=== PATIENT | male | born 1930 | race Caucasian/White ===

== ENCOUNTER 2017-03-23 18:52 | Inpatient (IN) | payer MEDICARE ==
--- NOTE | 2017-03-23 19:20 | RAD ---
PORTABLE AP CHEST X-RAY 03/23/17 HISTORY: Preoperative evaluation. COMPARISON: None available. FINDINGS: The cardiac silhouette and pulmonary vasculature are within normal limits. There are scattered increa sed interstitial densities bilaterally probably related to mild chronic lung changes. There is no foc al consolidation or pleural fluid seen. Degenerative changes are noted in the spine with mild osteope corey and right acromioclavicular joint osteoarthritis. Vascular calcifications seen in the thoracic ao rta. IMPRESSION: Mild chronic lung changes without evidence of an acute cardiopulmonary process. POS: [facility]
[2017-03-23 19:22] LABS: Mean Corpuscular HGB CONC 31.1 g/dL (32.0-36.0); Mean Corpuscular Hemoglobin 27.9 pg (27.0-31.0); Mean Corpuscular Volume 89.6 fl (80.0-94.0); Mean Platelet Volume 11.1 fL (7.4-10.4); Platelet Count 129 thou/uL (130-400); RBC Distribution Width 16.5 % (11.5-14.5); Red Blood Cell (RBC) Count 2.51 mill/uL (4.70-6.10); White Blood Cell (WBC) Count 18.6 thou/uL (4.8-10.8)
[2017-03-23 19:45] LABS: ALT (SGPT) 11 U/L (8-55); AST (SGOT) 17 U/L (5-34); Albumin 3.5 g/dL (3.4-4.8); Alkaline Phosphatase 39 U/L (40-150); Anion Gap 16 mmol/L (10-20); BUN (Urea Nitrogen) 38 mg/dL (8.4-25.7); Bilirubin, Total 0.4 mg/dL (0.2-1.2); Calc. Creatinine Clearance 0 mL/min (70-130); Calcium 10.2 mg/dL (7.8-10.44); Carbon Dioxide 30 mmol/L (23-31); Chloride 104 mmol/L (98-107); Estimated GFR-MDRD 28; Globulin 2.5 g/dL (2.4-3.5); Glucose 166 mg/dL (83-110); Potassium 4.9 mmol/L (3.5-5.1); Sodium 145 mmol/L (136-145)
[2017-03-23 19:46] LABS: CKMB 2.5 ng/mL (0-6.6)
[2017-03-23 19:47] LABS: Anisocytosis SLIGHT = 6-15 cells (100X) (0-5/hpf); Band 2 % (5-11); Hypochromia SLIGHT = 6-15 cells (100X) (0-5/hpf); Large Platelets SLIGHT; Lymphocytes 3 % (21-51); MDiff Complete? YES; Monocytes 3 % (0-10); Neutrophil 92 % (42-75); Ovalocytes SLIGHT = 2-5 cells (100X) (0-1/hpf); PLT Morphology Comment Appears Decreased
[2017-03-23 19:59] LABS: Bilirubin Small (Negative); Blood, Urine Moderate (Negative); Clarity CLOUDY (Clear); Glucose, Urine (Dipstick) 100 mg/dL (Negative); Leukocyte Negative (Negative); Nitrite Negative (Negative); Protein, Urine (Dipstick) 100 mg/dL (Neg-Trace)
[2017-03-23 20:03] LABS: RBC/HPF 0-3 HPF (0-3); Squamous Epithelial 21-50 HPF (0-3); WBC/HPF 21-50 HPF (0-3); Yeast-AUWi Flag 13.2 (0-25.0)
[2017-03-23 20:06] LABS: Pathc Cast-AUWi Flag 7.04 (0-2.49)
[2017-03-23 20:22] LABS: Bacteria/HPF 3+ HPF (None Seen); Hyaline Casts/LPF 0-3 HYALINE CAST LPF (0-3 Hyaline); Manual Microscopic Reviewed? No Path Casts Seen; Renal Epithelial None Seen HPF (0-3); Transitional Epithelial NONE SEEN HPF (0-3)
--- NOTE | 2017-03-23 21:16 | RAD ---
TWO VIEWS LEFT HIP 03/23/17 HISTORY: Patient fell last night with a confirmed intertrochanteric left hip fracture. FINDINGS: There is an intertrochanteric left hip fracture. The distal fracture fragment is slightly displaced a nteriorly. In addition, fracture is probably mildly comminuted with fracture lucency extending supero lateral aspect of the femoral head/neck junction. There is no evidence of a dislocation. Postsurgical changes of the lower lumbar spine as well as postsurgical changes of the lower pelvis are noted. Vas cular calcifications are seen in the iliac and femoral arteries. IMPRESSION: Mildly comminuted intertrochanteric left hip fracture. The fracture appears to extend to the superola teral aspect of the left femoral head\neck junction. POS: [facility]
--- NOTE | 2017-03-23 21:21 | RAD ---
AP PELVIS RADIOGRAPH 03/23/17 HISTORY: Patient fell last night with confirmed intertrochanteric left hip fracture. COMPARISON: Views left hip also obtained on this date. FINDINGS: Frontal view of the left hip, there is an intertrochanteric left hip fracture. There is right hip ost eoarthritis with narrowing of the right hip joint space with subchondral sclerosis and subchondral cy stic changes. Postsurgical changes lumbar spine are noted related to posterior fusion and laminectomy defect at the level of the L4 vertebral body. Surgical clips overlie the pelvis. Vascular calcificat ions seen in the iliac and femoral arteries. IMPRESSION: 1. Intertrochanteric left hip fracture. 2. Right hip osteoarthritis. POS: [facility]
[2017-03-23] MEDS ORDERED: Hydrocortisone Sod Succ/PF 100 mg/2 ml Vial IVP SCH ×2 (21:30)
--- NOTE | 2017-03-23 21:32 | CT ---
NONCONTRAST CT HEAD 03/23/17 HISTORY: Injury after fall. Patient also has left hip fracture. COMPARISON: Not available. FINDINGS: There is decreased attenuation seen in the periventricular white matter likely reflective of mild chr onic small vessel ischemic changes. There is no evidence of an acute cortical infarction, hemorrhage, mass effect, or midline shift. There is cerebral volume loss. The ventricular system is normal in si ze, shape and position for the degree of sulcal atrophy. No calvarial fracture is seen. The visualize d paranasal sinuses and mastoid air cells are clear. Dense vascular calcifications are seen at the ca rotid siphons involving the distal vertebral arteries. IMPRESSION: 1. No acute intracranial abnormality is demonstrated. 2. Chronic small vessel ischemic changes and cerebral volume loss. POS: [facility]
[2017-03-23 21:46] LABS: INR-International Normal Ratio 1.3; Prothrombin Time 16.3 SEC (12.0-14.7)
[2017-03-23] MEDS ORDERED: traMADol HCl 50 MG TAB PO PRN (21:55)
[2017-03-23] MEDS ORDERED: Morphine 4 MG/ML Carpuject SLOW IVP PRN (21:56)
[2017-03-23] MEDS ORDERED: Dextrose 5% in Water 1,000 ML IV PRN (21:56)
[2017-03-23] MEDS ORDERED: Ondansetron HCl/PF 4 MG/2 ML Vial IVP PRN (21:56)
[2017-03-23] MEDS ORDERED: Dextrose 50% Abboject 50 ML SYRINGE SLOW IVP PRN (21:56)
[2017-03-23] MEDS ORDERED: Ondansetron ODT 4 MG TAB PO PRN (21:56)
--- NOTE | 2017-03-23 23:49 | HP ---
ATTENDING PHYSICIAN: Dr. Anthony Capone. TRAUMA ACTIVATION: Not applicable. HISTORY OF PRESENT ILLNESS: Travis Coles is an 86-year-old male who presented to [facility] from his residential status post fall from bed. alf staff reported that the patient has had in creasing confusion over the last couple of days. He was evaluated in our emergency room and found to have a left hip fracture and evidence of possible UTI on urinalysis. Orthopedic Surgery was notifie d and Trauma Service was asked to admit. In addition, patient was found to be anemic with a hemoglob in of 7, but no evidence of active bleeding. Lastly, the patient had an elevated creatinine and evid ence of acute versus chronic kidney injury. Upon my evaluation, the patient is intermittently confus ed. He cannot tell me why he came to the hospital. He denies any pain. Medical history and HPI obt ained from records review. ALLERGIES: None. CURRENT MEDICATIONS: Brandy 100 mg p.o. daily, Aricept 5 mg p.o. daily, aspirin 81 mg p.o. daily, B 12 injection every other week, Cymbalta 60 mg p.o. daily, Pepcid 20 mg p.o. at bedtime, Flomax 0.4 mg p.o. daily, ibuprofen 600 mg p.o. b.i.d., ipratropium-albuterol 4 times daily, iron 325 p.o. b.i.d., Synthroid 100 mcg p.o. a.m., Ativan 0.5 mg p.o. daily, meclizine 25 mg p.o. p.r.n., prednisone 10 mg p.o. daily, mirtazapine 15 mg p.o. at bedtime, and Ventolin inhaler q.4 hours p.r.n. PAST MEDICAL HISTORY: Significant for history of dementia, prostate cancer, atrial fibrillation, cor onary artery disease, hypothyroidism, hypertension, and COPD. PAST SURGICAL HISTORY: Prostate surgery and back surgery. FAMILY HISTORY: Unable to obtain. REVIEW OF SYSTEMS: Unable to obtain. PHYSICAL EXAMINATION: VITAL SIGNS: On evaluation include blood pressure 97/65, pulse 65, respirations 18, temperature 98.1 , O2 sat 96% on 2-3 liters nasal cannula. GENERAL: Well-developed elderly male, resting in bed, in no acute distress. HEAD: Normocephalic, small left frontal abrasion. EYES: Pupils are PERRL. Extraocular movements are intact. NECK: Supple. Trachea is midline. CHEST: Atraumatic, normal work of breathing, symmetric rise. LUNGS: Clear to auscultation bilaterally. CARDIOVASCULAR: Regular rate and rhythm, no obvious murmurs, rubs or gallops. GASTROINTESTINAL: Abdomen is soft, nontender, nondistended. BACK: Being reported as within normal limits. MUSCULOSKELETAL: Bilateral upper extremities within normal limits. Right lower extremity within nor mal limits. Left lower extremity is shortened and externally rotated. Patient is neurovascularly in tact distal to the site of his injury. NEUROLOGIC: GCS 14, secondary to confusion. Patient is alert and oriented to person and time. He d oes have some slurred speech which is baseline per residential. There is no any focal deficit. LABORATORY DATA: WBC 18.6, hemoglobin 7.0, hematocrit 22.5, platelet count 129, 92% neutrophils and 2% bands. INR is 1.3. Sodium 145, potassium 4.9, chloride 104, carbon dioxide 30, BUN 38, creatinin e 2.25, glucose 166. AST and ALT within normal limits. Troponin 0.030, cortisol 6.90. Urinalysis w as significant for proteinuria, trace ketones, moderate blood, small amount of bilirubin and leukocyt e esterase is negative. WBC 20-50, squamous cells 20-50 and 3+ bacteria. RADIOGRAPHIC FINDINGS: CT of the brain was negative for acute intracranial abnormality, but showed c hronic small vessel changes per Radiology. X-ray of the pelvis was significant for left hip fracture . X-ray of the left hip demonstrated intertrochanteric left hip fracture. Chest x-ray was read as c hronic lung changes without evidence of acute cardiopulmonary process. ASSESSMENT AND PLAN: 1. Admit to Trauma Services. The patient will need telemetry monitoring given his elevated troponin . Trend troponins. Gentle IV fluid hydration. The patient has received broad-spectrum antibiotics in the emergency room for possible urinary tract infection. Follow urine culture. 2. Anemia appears to be chronic as patient is on b.i.d., iron at his residential. Stool guaiac was negative. He does not demonstrate any signs of overt bleeding. The patient is on chronic steroids with low cortisol level and borderline blood pressure, 100 mg of hydrocortisone. Transfuse 1 unit of PRBC for hemoglobin of 7 and hypotension, in the setting of hip fracture. Orthopedic Surgery is rob re of the patient, will evaluate. Trauma attending has been notified of admission.
[2017-03-24] MEDS: Sodium Chloride 0.9% 1,000 ML IV SCH ×2 (00:08→22:53)
[2017-03-24 00:25] LABS: CKMB 2.2 ng/mL (0-6.6); Troponin I 0.024 ng/mL (< 0.028)
[2017-03-24 00:41] VITALS: BMI 20.2
[2017-03-24] MEDS: Acetaminophen 1,000 MG in Premix Bag 1 BAG IVPB SCH ×5 (00:50→22:55)
[2017-03-24 05:18] LABS: Anion Gap 15 mmol/L (10-20); BUN (Urea Nitrogen) 43 mg/dL (8.4-25.7); Calc. Creatinine Clearance 20 mL/min (70-130); Calcium 9.2 mg/dL (7.8-10.44); Carbon Dioxide 33 mmol/L (23-31); Chloride 105 mmol/L (98-107); Estimated GFR-MDRD 27; Glucose 110 mg/dL (83-110); Magnesium 2.1 mg/dL (1.6-2.6); Phosphorus 5.2 mg/dL (2.3-4.7); Potassium 4.8 mmol/L (3.5-5.1); Sodium 148 mmol/L (136-145)
[2017-03-24 05:25] LABS: CKMB 2.2 ng/mL (0-6.6); Troponin I 0.032 ng/mL (< 0.028)
[2017-03-24] MEDS: Hydrocortisone Sod Succ/PF 100 mg/2 ml Vial IVP SCH ×4 (05:33→22:55)
[2017-03-24 06:34] LABS: Hemoglobin 7.4 g/dL (14.0-18.0); Mean Corpuscular HGB CONC 30.4 g/dL (32.0-36.0); Mean Corpuscular Hemoglobin 26.9 pg (27.0-31.0); Mean Corpuscular Volume 88.4 fl (80.0-94.0); Mean Platelet Volume 12.2 fL (7.4-10.4); Platelet Count 120 thou/uL (130-400); RBC Distribution Width 15.9 % (11.5-14.5); Red Blood Cell (RBC) Count 2.73 mill/uL (4.70-6.10); White Blood Cell (WBC) Count 18.2 thou/uL (4.8-10.8)
[2017-03-24 06:35] LABS: Band 6 % (5-11); Lymphocytes 6 % (21-51); MDiff Complete? YES; Monocytes 17 % (0-10); Neutrophil 71 % (42-75); PLT Morphology Comment Appears Decreased
[2017-03-24] MEDS ORDERED: CEFAZOLIN/Water 2 GM/20 ML SYRINGE SLOW IVP SCH (07:45)
--- NOTE | 2017-03-24 07:57 | CON ---
DATE OF CONSULTATION: 03/24/2017 CHIEF COMPLAINT: Left hip pain. HISTORY OF PRESENT ILLNESS: Mr. Coles is an 86-year-old male who fell. He was found at his home a fter falling from bed yesterday. He was taken to the emergency department last night. Over the last 2 days, he has had increased confusion. He has been found to have a urinary tract infection, which likely explains this. He lives independently at home. X-rays were obtained and show a left intertro chanteric femur fracture. He has been admitted to the hospital. He is resting comfortably. He has had 1 unit of blood transfusion for chronic anemia as well. No complaints or problems overnight. ALLERGIES: None. PAST MEDICAL HISTORY: Includes dementia, prostate cancer, atrial fibrillation, coronary artery disea se, hypothyroidism, hypertension, and COPD. PAST SURGICAL HISTORY: Prostate surgery and lumbar back surgery. FAMILY MEDICAL HISTORY: Noncontributory. REVIEW OF SYSTEMS: Positive for left hip pain with movement, otherwise negative 10-point review of s ystems. IMAGES: X-rays of the left hip demonstrate an intertrochanteric with subtrochanteric extension proxi mal femur fracture. This is in the left leg. PHYSICAL EXAMINATION: VITAL SIGNS: Temperature is 97.8, oxygen saturation 92%, respiratory 18, blood pressure is 173/77. GENERAL: The patient is alert and oriented, sitting upright, in no apparent distress. RESPIRATORY: Breathing comfortably. ABDOMEN: Soft, nontender, nondistended. MUSCULOSKELETAL: The patient's left leg has pain with motion. He is able to flex and extend the jaxon t and ankle. He has palpable pulse. IMPRESSION: Left intertrochanteric femur fracture in an elderly male with chronic anemia and a urina ry tract infection. PLAN: At this point, regarding the patient's hip fracture, he will best be treated with surgical int ervention. I will plan for a intramedullary nail of the left femur to restore alignment, provide sta bility and allow him to mobilize. Risks of surgery would include medical complications such as strok e, [place], or even as well as hardware failure, nonunion, infection, and others. He will be n.p.o. He will have adequate pain control. He will have medical optimization.
[2017-03-24] MEDS: Famotidine/PF 20 mg/2ml Vial SLOW IVP SCH (09:04)
[2017-03-24] MEDS ORDERED: Lidocaine 1% PF 5 ML VIAL ONE (10:23)
[2017-03-24] MEDS ORDERED: Propofol 200 MG/20 ML VIAL ONE (10:23)
[2017-03-24] MEDS ORDERED: Naloxone HCl 0.4 mg/ml Vial ONE (10:23)
[2017-03-24] MEDS ORDERED: Ondansetron HCl/PF 4 MG/2 ML Vial ONE (10:23)
[2017-03-24] MEDS ORDERED: Glycopyrrolate 0.2 MG/ML 5 ML SYRINGE ONE (10:23)
[2017-03-24] MEDS ORDERED: PHENYLEPHRINE-NS 100 MCG/ML 10 ML SYRINGE ONE (10:23)
[2017-03-24] MEDS ORDERED: CEFAZOLIN/Water 2 GM/20 ML SYRINGE ONE (16:26)
[2017-03-24] MEDS ORDERED: Morphine 4 MG/ML VIAL ONE (16:57)
[2017-03-24 17:43] LABS: Hemoglobin 8.7 g/dL (14.0-18.0); Mean Corpuscular HGB CONC 31.6 g/dL (32.0-36.0); Mean Corpuscular Volume 88.5 fl (80.0-94.0); Mean Platelet Volume 12.1 fL (7.4-10.4); Platelet Count 123 thou/uL (130-400); RBC Distribution Width 15.5 % (11.5-14.5); Red Blood Cell (RBC) Count 3.11 mill/uL (4.70-6.10)
[2017-03-24 17:55] LABS: Anisocytosis SLIGHT = 6-15 cells (100X) (0-5/hpf); Band 9 % (5-11); Hypochromia SLIGHT = 6-15 cells (100X) (0-5/hpf); Lymphocytes 4 % (21-51); MDiff Complete? YES; Metamyelocyte 1 % (0-0); Monocytes 4 % (0-10); Neutrophil 82 % (42-75); Ovalocytes SLIGHT = 2-5 cells (100X) (0-1/hpf)
[2017-03-24] MEDS ORDERED: Fentanyl 100 MCG/2 ML VIAL ONE (18:16)
--- NOTE | 2017-03-24 19:02 | PRG ---
DATE OF SERVICE: 03/24/2017 SUBJECTIVE: The patient is hospital day #2 status post ground level fall, in which he sustained a le ft hip fracture and has been n.p.o. overnight and is currently awaiting surgical intervention. The p atient was noted to have anemia this morning for which he was transfused. Otherwise, it was noted th at the patient will have intermittent episodes of drowsiness and becomes nearly unresponsive. This w as witnessed during our rounds this morning, where the patient essentially has Qamar coma scale of 6 and then suddenly became 15 with minimal stimulation. Stable vital signs throughout. No evidence of seizure activity or anything else that would possibly explain this, though it appears that the pat ient may have been contributing to this purposefully. OBJECTIVE: VITAL SIGNS: Temperature is 98.7, heart rate 68, blood pressure 154/63, respirations 17, oxygen satu ration 90% on 3 liters via nasal cannula. GENERAL: The patient is resting in bed. He will not follow commands, but he is awake and his eyes a re open and he appears to be interacting, just not following commands for us. LUNGS: The patient has scattered scant wheezing bilaterally. HEART: Regular rate and rhythm. ABDOMEN: Soft, flat, and nontender with active bowel sounds. EXTREMITIES: Neurovascularly intact x4. LABORATORY FINDINGS: White blood cell count 18.2, hemoglobin 7.4, hematocrit 24.2, platelets 120. S odium 148, potassium 4.8, chloride 105, CO2 of 33, BUN 43, creatinine 2.3, glucose 110, magnesium 2.1 , phosphorus 5.2. There no radiographs reviewed this morning. ASSESSMENT AND PLAN: 1. Status post ground level fall. 2. Left hip fracture. PLAN: Plan will be to continue supportive care. Transfuse 1 unit of packed red blood cells and repe at labs after his surgery, which is planned this afternoon, and transfer the patient to the surgical floor. Postoperatively, we will advance his diet and begin working with physical and occupational th erapy and discuss postop placement. The patient was seen with Dr. Willson this morning during rounds.
[2017-03-24] MEDS ORDERED: Ondansetron HCl/PF 4 MG/2 ML Vial IVP PRN (20:09)
[2017-03-24] MEDS ORDERED: Promethazine HCl 25 MG/ML VIAL SLOW IVP PRN (20:09)
[2017-03-24] MEDS ORDERED: Promethazine HCl 25 MG/ML VIAL IM PRN (20:09)
--- NOTE | 2017-03-24 20:55 | PRG ---
DATE OF SERVICE: 03/24/2017 SUBJECTIVE: This is an 86-year-old gentleman status post fall with hip fracture. He is postop day 0 hip fracture repair. Patient was seen and evaluated in the PACU. He remains under the influence of his anesthesia/sedation. He is currently satting 100% on nonrebreather. He is arousable to loud vo ice only. He remained hemodynamically stable throughout his procedure. OBJECTIVE: VITAL SIGNS: Systolic blood pressure in the 120s, heart rate in the 60s. Oxygen saturation 100%, re sting in bed in no acute distress, on nonrebreather and oral airway in place. Breathing is nonlabore d. EXTREMITIES: Appear well perfused. NEUROLOGIC: No focal deficit is noted. ASSESSMENT AND PLAN: Continue current care as ordered. We will reevaluate the patient once he is mo re awake from his anesthesia. Continue care as ordered at this time. If the patient wakes up approp riately, can be transferred to pendroy 3. If he remains difficult to arouse, may need to be monitored more closely in the IMCU.
--- NOTE | 2017-03-24 21:58 | RAD ---
FOUR INTRAOPERATIVE FLUOROSCOPIC IMAGES OF THE LEFT HIP/FEMUR 03/24/17 HISTORY: ORIF left hip. COMPARISON: 03/23/17. FINDINGS: There is an intramedullary jacklyn with dynamic compression type screw and distal interlocking screw mcmahon sfixing the previously seen intertrochanteric left hip fracture. The intramedullary jacklyn extends from the proximal femur to the distal metadiaphysis of the femur. No hardware complication is appreciated on this exam. Vascular calcifications are seen in the femoral and iliac arteries. Surgical clips over lie the left pelvis. IMPRESSION: Postsurgical changes related to internal fixation of left intertrochanteric hip fracture. POS: [facility]
[2017-03-24] MEDS: CEFAZOLIN/Water 2 GM/20 ML SYRINGE SLOW IVP SCH (23:02)
--- NOTE | 2017-03-24 23:11 | OP ---
DATE OF PROCEDURE: 03/24/2017 OPERATION: Left intramedullary nail of femur. PREOPERATIVE DIAGNOSIS: Left intertrochanteric femur fracture. POSTOPERATIVE DIAGNOSIS: Left intertrochanteric femur fracture. COMPLICATIONS: None. ESTIMATED BLOOD LOSS: 100 mL ANESTHESIA: General. SURGEON: Vipin Bronson M.D. GENERAL FARM MANAGER: Johnny Barrios PA-C. IMPLANTS: Synthes long trochanteric femoral nail size 11 mm with helical blade. INDICATIONS: Mr. Coles is an 86-year-old male who has fallen. He sustained a fracture of the inte rtrochanteric femur with subtrochanteric extension. He was indicated for long trochanteric nail to r estore stability and alignment of the femur. Risks have been reviewed in detail. He has elected to proceed with the operation. DESCRIPTION OF PROCEDURE: Mr. Coles was identified in the preoperative holding area. His correct extremity was marked. He was carried to the operating room. He was positioned supine. General anes thesia was induced. A multidisciplinary timeout was performed. The left lower extremity was prepped and draped in sterile fashion. At this point, we began the procedure after reducing the fracture using the traction table. Once we had an anatomic reduction, we made an incision proximally over the thigh. We then inserted a guidewi re. At this point, we dissected down through and overdrilled the guidewire. Next, we inserted a bal l-tip guidewire distally to the knee. We checked the position of the distal guidewire on x-ray. At this point, we then over reamed the guidewire up to a size 12 mm reamer. Next, we inserted our 11 mm femoral nail. We placed a helical blade in the centered position of the femoral head proximally. W e then placed our distal cross lock screw using perfect [place] technique. We took final x-ray images. We thoroughly irrigated all wounds. We then closed with 0 Vicryl suture , 2-0 Vicryl suture and mary for the skin. A sterile dressing was applied at this point. The pat ient was taken to the recovery room in good condition without complication.
[2017-03-25] MEDS: Sodium Chloride 0.9% 1,000 ML IV SCH ×2 (02:16→18:56)
[2017-03-25] MEDS: Hydrocortisone Sod Succ/PF 100 mg/2 ml Vial IVP SCH ×4 (02:16→20:51)
[2017-03-25] MEDS: Acetaminophen 500 MG TAB PO SCH ×3 (05:44→18:56)
[2017-03-25 06:27] LABS: Anion Gap 16 mmol/L (10-20); BUN (Urea Nitrogen) 46 mg/dL (8.4-25.7); Calc. Creatinine Clearance 21 mL/min (70-130); Calcium 8.3 mg/dL (7.8-10.44); Carbon Dioxide 28 mmol/L (23-31); Chloride 108 mmol/L (98-107); Estimated GFR-MDRD 29; Glucose 103 mg/dL (83-110); Magnesium 1.8 mg/dL (1.6-2.6); Phosphorus 5.3 mg/dL (2.3-4.7); Potassium 4.9 mmol/L (3.5-5.1); Sodium 147 mmol/L (136-145)
[2017-03-25 06:29] LABS: Band 3 % (5-11); Hemoglobin 7.7 g/dL (14.0-18.0); Lymphocytes 3 % (21-51); MDiff Complete? YES; Mean Corpuscular HGB CONC 33.7 g/dL (32.0-36.0); Mean Corpuscular Hemoglobin 30.2 pg (27.0-31.0); Mean Corpuscular Volume 89.6 fl (80.0-94.0); Monocytes 15 % (0-10); Neutrophil 79 % (42-75); PLT Morphology Comment Appears Decreased; Platelet Count 90 thou/uL (130-400); RBC Distribution Width 15.3 % (11.5-14.5); Red Blood Cell (RBC) Count 2.54 mill/uL (4.70-6.10); White Blood Cell (WBC) Count 21.4 thou/uL (4.8-10.8)
[2017-03-25] MEDS: Famotidine/PF 20 mg/2ml Vial SLOW IVP SCH (09:00)
[2017-03-25] MEDS: traMADol HCl 50 MG TAB PO PRN ×2 (09:00→13:50)
[2017-03-25] MEDS: Senokot S 8.6-50 MG TAB PO SCH ×2 (09:00→20:52)
[2017-03-25] MEDS: CEFAZOLIN/Water 2 GM/20 ML SYRINGE SLOW IVP SCH (09:00)
[2017-03-25] MEDS: Polyethylene Glycol 3350 17 GM Packet PO SCH (09:00)
--- NOTE | 2017-03-25 12:39 | PQF ---
DATE: 03-25-17 ATTN: MARCELLE NARVAEZ Please exercise your independent, professional judgment in responding to the clarification form. Clinical indicators are provided on the bottom of this form for your review Please check appropriate box(s): [ ] Demand Ischemia [ ] GA (type) [ X ] Other likely 2/2 renal failure In addition, please specify: Present on Admission (POA): [ X ] Yes [ ] No [ ] Unable to determine For continuity of documentation, please document condition throughout progress notes and discharge summary. Thank You. CLINICAL INDICATORS - SIGNS / SYMPTOMS/ LABS are present in the medical record: Lab Results: TROPONIN: 03-23-17: 0.030 03-23-17: 0.024 03-24-17: 0.032 RISK FACTORS: H&P: HX OF HTN, CAD TREATMENT: SERIES OF LABS H&P: THE PATIENT WILL NEED TELEMETRY MONITORING GIVEN HIS ELEVATED TROPONIN. TREND TROPONINS. GENTLE IV FLUID HYDRATION. (This form is maintained as a part of the permanent medical record) 2014 [employer], [email or web address]. All Rights Reserved ESHA [email or web address] Office: [phone] [facility] HOSPITALChaitanya
--- NOTE | 2017-03-25 12:58 | PQF ---
DATE: 03-25-17 ATTN: MARCELLE NARVAEZ Please exercise your independent, professional judgment in responding to the clarification form. Clinical indicators are provided on the bottom of this form for your review Please check appropriate box(s): [ ] Encephalopathy: Type: [ ] Acute [ ] Subacute [ ] Chronic [ ] No Diagnosis of Encephalopathy [ ] Other diagnosis [X ] Unable to determine - unable to verify patients baseline mental status In addition, please specify: Present on Admission (POA): [ X ] Yes [ ] No [ ] Unable to determine For continuity of documentation, please document condition throughout progress notes and discharge summary. Thank You. CLINICAL INDICATORS - SIGNS / SYMPTOMS / LABS: ER DOCUMENTATION: [place] REPORTS L HIP PAIN AND POSSIBLE CONFUSION, [facility] PATIENT THAT HAD FALL H&P: [facility] STAFF REPORTED THAT THE PATIENT HAS HAD INCREASING CONFUSION OVER THE LAST COUPLE OF DAYS. UPON MY EVALUATION, THE PATIENT IS INTERMITTENTLY CONFUSED. HE CANNOT TELL ME WHY HE IS IN HOSPITAL. GCS 14, SECONDARY TO CONFUSION RISK FACTORS: H&P: FOUND TO HAVE L HIP FRACTURE AND EVIDENCE OF POSSIBLE UTI ON URINALYSIS TREATMENTS: (MAR ) IVF, CIPRO (ER) IVF, ROCEPHIN INJECTION (This form is maintained as a part of the permanent medical record) 2014 [employer] All Rights Reserved [email or web address] Office: [phone] SUSSY
--- NOTE | 2017-03-25 16:10 | PRG ---
DATE OF SERVICE: 03/25/2017 SUBJECTIVE: The patient is hospital day #3, postop day #1 status post ground level fall, which he ortega stained a left hip fracture. The patient underwent surgical intervention by Orthopedics yesterday, s pecifically left intramedullary nail of the femur. The patient tolerated the procedure well this mor hernandez. He is much more alert and awake and interactive than yesterday morning. The patient had a com plete breakfast and states his pain is controlled. Patient has not started physical and occupational therapy with that is plan for this morning. OBJECTIVE: VITAL SIGNS: Heart rate 66, blood pressure 161/75, respirations 12, oxygen saturation is 98% on 3 li ters via nasal cannula. HEENT: Unremarkable. GENERAL: The patient is awake, alert, responsive, and appropriate. LUNGS: Clear to auscultation bilaterally. HEART: Regular rate and rhythm. ABDOMEN: Soft, flat, nontender with active bowel sounds. EXTREMITIES: Neurovascularly intact x4. Postoperative dressing is clean, dry, and intact. LABORATORY FINDINGS: White blood cell count 21.4, hemoglobin 7.7, hematocrit 22.8, platelets 90. So dium 147, potassium 4.9, chloride 108, CO2 of 28, BUN 46, creatinine 2.14, glucose 103. Magnesium 1. 8, phosphorus 5.3. There are no radiographs were reviewed this morning. ASSESSMENT AND PLAN: 1. Status post ground level fall. 2. Status post intramedullary nailing of left femur fracture. Plan will be to continue supportive care, certainly pain control. Await physical and occupational th erapy and we will discuss placement with the patient and the family. This evaluation examination was done with Dr. Willson during rounds this morning.
[2017-03-25] MEDS: Mirtazapine 15 MG Soltab PO SCH (20:52)
[2017-03-25] MEDS: Lorazepam 1 MG TAB PO SCH (20:52)
--- NOTE | 2017-03-25 20:59 | PRG ---
DATE OF SERVICE: 03/25/2017 SUBJECTIVE: This is an 86-year-old gentleman status post fall. He is postop day #1 status post hip fracture repair. Upon my evaluation, the patient vocalized no complaint. States his pain is control led. OBJECTIVE: GENERAL: Resting in bed, in no acute distress. LUNGS: Normal work of breathing. NEUROLOGIC: No focal deficit noted. ASSESSMENT: As documented in the daily progress note. Continue to monitor. Continue care as oxana thomas
[2017-03-26] MEDS: Acetaminophen 500 MG TAB PO SCH ×4 (00:49→17:06)
[2017-03-26 05:33] LABS: Band 10 % (5-11); Elliptocytes SLIGHT = 2-5 cells (100X) (0-1/hpf); Hemoglobin 6.6 g/dL (14.0-18.0); Lymphocytes 2 % (21-51); MDiff Complete? YES; Mean Corpuscular HGB CONC 30.4 g/dL (32.0-36.0); Mean Corpuscular Hemoglobin 27.4 pg (27.0-31.0); Mean Corpuscular Volume 90.3 fl (80.0-94.0); Mean Platelet Volume 9.5 fL (7.4-10.4); Monocytes 21 % (0-10); Neutrophil 67 % (42-75); PLT Morphology Comment Appears Decreased; Platelet Count 78 thou/uL (130-400); RBC Distribution Width 15.5 % (11.5-14.5); White Blood Cell (WBC) Count 17.3 thou/uL (4.8-10.8)
[2017-03-26 05:38] LABS: Anion Gap 10 mmol/L (10-20); BUN (Urea Nitrogen) 48 mg/dL (8.4-25.7); Calc. Creatinine Clearance 26 mL/min (70-130); Calcium 7.9 mg/dL (7.8-10.44); Carbon Dioxide 32 mmol/L (23-31); Chloride 105 mmol/L (98-107); Estimated GFR-MDRD 38; Glucose 103 mg/dL (83-110); Phosphorus 3.9 mg/dL (2.3-4.7); Potassium 4.3 mmol/L (3.5-5.1); Sodium 143 mmol/L (136-145)
[2017-03-26] MEDS: traMADol HCl 50 MG TAB PO PRN ×4 (05:54→20:50)
[2017-03-26] MEDS: Levothyroxine Sodium 100 MCG TAB PO SCH (05:55)
[2017-03-26 08:06] LABS: Reticulocyte Count 5.9 % (0.5-1.5)
[2017-03-26] MEDS: Donepezil HCl 5 MG TAB PO SCH (08:29)
[2017-03-26] MEDS: DULoxetine 60 MG CAP PO SCH (08:29)
[2017-03-26] MEDS: predniSONE 5 MG TAB PO SCH (08:29)
[2017-03-26] MEDS: Famotidine/PF 20 mg/2ml Vial SLOW IVP SCH (08:30)
[2017-03-26] MEDS: Tamsulosin HCl 0.4 MG CAP PO SCH (08:30)
[2017-03-26] MEDS: Hydrocortisone Sod Succ/PF 100 mg/2 ml Vial IVP SCH ×2 (08:33→20:51)
[2017-03-26] MEDS: Ferrous Sulfate 325 MG TAB PO SCH ×2 (08:37→17:06)
[2017-03-26] MEDS: Polyethylene Glycol 3350 17 GM Packet PO SCH (08:38)
[2017-03-26] MEDS: Senokot S 8.6-50 MG TAB PO SCH ×2 (08:38→20:51)
[2017-03-26] MEDS: Ascorbic Acid 500 mg Chewable Tablet PO SCH ×2 (08:38→20:50)
[2017-03-26] MEDS ORDERED: Furosemide 20 MG/2 ML VIAL SLOW IVP SCH (13:00)
--- NOTE | 2017-03-26 15:01 | PRG ---
DATE OF SERVICE: 03/26/2017 SUBJECTIVE: The patient is hospital day #4, postop day #2 status post ground level fall in which he sustained a left hip fracture. The patient underwent his intramedullary nailing of femur fracture ye day. He tolerated this procedure well and has begun working with physical and occupational thertiny castillo. This morning's labs noted that the patient was anemic and he is currently receiving 1 unit of pa cked red blood cells, otherwise the patient states that his pain is controlled. He is tolerating a d iet. PHYSICAL EXAMINATION: VITAL SIGNS: Temperature is 97.4, heart rate 64, blood pressure 162/62, respirations 18, and oxygen saturation 100% on room air. GENERAL: Patient is resting comfortably in bed. He is awake, alert, and oriented to baseline. He i nteracts appropriately and follows commands. HEENT: Unremarkable. LUNGS: Clear to auscultation bilaterally. HEART: Regular rate and rhythm. ABDOMEN: Soft, flat, nontender with hyperactive bowel sounds. Pelvis is stable. Postop dressing is clean, dry, and intact. EXTREMITIES: Neurovascularly intact x4. LABORATORY DATA AND IMAGING DATA: White blood cell count 17.3, hemoglobin 6.6, hematocrit is 21.7, a nd platelets 78. Sodium 143, potassium 4.3, chloride 105, CO2 32, BUN 48, creatinine 1.72, glucose 1 03, magnesium 2.0, and phosphorus 3.9. There are no radiographs to review this morning. ASSESSMENT AND PLAN: 1. Status post ground level fall. 2. Status post intramedullary nailing of left femur fracture. 3. Acute blood loss anemia. PLAN: Will be to continue physical and occupational therapy and await placement decision and transfu se 1 unit of packed red blood cells this morning. We will recheck his labs in the morning. This case was discussed with Dr. Willson this morning.
[2017-03-26] MEDS ORDERED: Docusate 100 MG CAP PO SCH (16:45)
--- NOTE | 2017-03-26 20:39 | PRG ---
DATE OF SERVICE: 03/26/2017 SUBJECTIVE: This is an 86-year-old male, hospital day 3, postop day 2, status post ground level fall . The patient received 1 unit of PRBC for anemia this morning. He has remained hemodynamically stab le. Upon my evaluation, the patient vocalized no complaints. OBJECTIVE: VITAL SIGNS: Reviewed and stable. The patient is resting in bed, in no acute distress. RESPIRATORY: Breathing is nonlabored. ASSESSMENT AND PLAN: As documented in daily progress note. Continue care as ordered. Continue to m onitor.
[2017-03-26] MEDS: Lorazepam 1 MG TAB PO SCH (20:50)
[2017-03-26] MEDS: Mirtazapine 15 MG Soltab PO SCH (20:51)
[2017-03-27] MEDS: Acetaminophen 500 MG TAB PO SCH ×3 (00:22→11:23)
[2017-03-27 04:58] LABS: Anion Gap 14 mmol/L (10-20); BUN (Urea Nitrogen) 43 mg/dL (8.4-25.7); Calc. Creatinine Clearance 32 mL/min (70-130); Calcium 8.3 mg/dL (7.8-10.44); Carbon Dioxide 29 mmol/L (23-31); Chloride 104 mmol/L (98-107); Estimated GFR-MDRD 47; Glucose 102 mg/dL (83-110); Phosphorus 3.6 mg/dL (2.3-4.7); Potassium 4.4 mmol/L (3.5-5.1); Sodium 143 mmol/L (136-145)
[2017-03-27] MEDS: Levothyroxine Sodium 100 MCG TAB PO SCH (05:18)
[2017-03-27 05:24] LABS: Band 7 % (5-11); Hemoglobin 7.8 g/dL (14.0-18.0); Lymphocytes 6 % (21-51); MDiff Complete? YES; Mean Corpuscular HGB CONC 30.1 g/dL (32.0-36.0); Mean Corpuscular Hemoglobin 27.3 pg (27.0-31.0); Mean Corpuscular Volume 90.7 fl (80.0-94.0); Mean Platelet Volume 10.3 fL (7.4-10.4); Monocytes 3 % (0-10); Myelocyte 2 % (0-0); Neutrophil 82 % (42-75); PLT Morphology Comment Appears Decreased; Platelet Count 76 thou/uL (130-400); Red Blood Cell (RBC) Count 2.86 mill/uL (4.70-6.10); White Blood Cell (WBC) Count 16.5 thou/uL (4.8-10.8)
[2017-03-27] MEDS ORDERED: Bisacodyl 10 MG SUPP PR SCH (09:00)
[2017-03-27] MEDS ORDERED: Docusate 100 MG CAP PO SCH (09:00)
[2017-03-27] MEDS: Senokot S 8.6-50 MG TAB PO SCH (11:13)
[2017-03-27] MEDS: Donepezil HCl 5 MG TAB PO SCH (11:14)
[2017-03-27] MEDS: Tamsulosin HCl 0.4 MG CAP PO SCH (11:14)
[2017-03-27] MEDS: predniSONE 5 MG TAB PO SCH (11:14)
[2017-03-27] MEDS: Ascorbic Acid 500 mg Chewable Tablet PO SCH (11:14)
[2017-03-27] MEDS: DULoxetine 60 MG CAP PO SCH (11:14)
[2017-03-27] MEDS: Famotidine/PF 20 mg/2ml Vial SLOW IVP SCH (11:15)
[2017-03-27] MEDS: Polyethylene Glycol 3350 17 GM Packet PO SCH (11:15)
[2017-03-27] MEDS: Ferrous Sulfate 325 MG TAB PO SCH (11:18)
[2017-03-27] MEDS: Hydrocortisone Sod Succ/PF 100 mg/2 ml Vial IVP SCH (11:23)
[2017-03-27 12:06] VITALS: BP 124/70; TEMP 97.7
--- NOTE | 2017-03-27 22:17 | DIS ---
DATE OF ADMISSION: 03/23/2017 DATE OF DISCHARGE: 03/27/2017 ADMISSION DIAGNOSES: 1. Status post ground level fall. 2. Status post left femur fracture. 3. Acute blood loss anemia. CONSULTATIONS: Orthopedics, Dr. Bronson. PROCEDURES: Intramedullary nailing of left femur fracture. HOSPITAL SUMMARY: The patient is an 86-year-old dementia patient, who reportedly had a fall at his [facility] facility. He was brought to the emergency department, evaluated, examined and found to have t he above injuries. The patient would be taken to the operating room to undergo his above procedure, which he tolerated well. The patient over his course did require 3 units of packed red blood cells. At time of discharge, his H and H had remained stable. His vitals were stable. He is tolerating a diet. His pain was controlled and he was working with physical and occupational therapy. The patien t will return to his nursing facility and after a lengthy discussion with the family, the patient luis armando l also have palliative care and hospice treatment at his facility. The patient will follow up with Chaitanya Bronson in 2-3 weeks or sooner as needed.
== END 2017-03-27 13:00 | disposition hospice, inpatient (51) | DRG 481 ==
LOC: ERS 18:52 → 2NO 22:52 → SJJU 03-24 21:55
PROVIDERS: ADMIT Specialist; ATTEND Specialist
PROC: 0QS736Z Reposition Left Upper Femur with Intramedullary Internal Fixation Device, Percutaneous Approach (ICD-10-PCS; principal; 2017-03-24)
PROC: 30233N1 Transfusion of Nonautologous Red Blood Cells into Peripheral Vein, Percutaneous Approach (ICD-10-PCS; 2017-03-24)
PROC: 30233N1 Transfusion of Nonautologous Red Blood Cells into Peripheral Vein, Percutaneous Approach (ICD-10-PCS; 2017-03-26)
DX: S72.142A Displaced intertrochanteric fracture of left femur, initial encounter for closed fracture (principal); N39.0 Urinary tract infection, site not specified; N17.9 Acute kidney failure, unspecified; I95.9 Hypotension, unspecified; J44.9 Chronic obstructive pulmonary disease, unspecified; F03.90 Unspecified dementia, unspecified severity, without behavioral disturbance, psychotic disturbance, mood disturbance, and anxiety; D62 Acute posthemorrhagic anemia; W06.XXXA Fall from bed, initial encounter; S72.22XA Displaced subtrochanteric fracture of left femur, initial encounter for closed fracture; I12.9 Hypertensive chronic kidney disease with stage 1 through stage 4 chronic kidney disease, or unspecified chronic kidney disease; N18.9 Chronic kidney disease, unspecified; I25.10 Atherosclerotic heart disease of native coronary artery without angina pectoris; E03.9 Hypothyroidism, unspecified; Z51.5 Encounter for palliative care
CPT/HCPCS: 36415; 36416; 36430; 51701; 70450; 71045; 72170; 76001; 80048; 80053; 81003; 81015; 82274; 82533; 82553; 83735; 83880; 84100; 84484; 85025; 85046; 85610; 86850; 86900; 86901; 87086; 93005; 94640; 96361; 96374; C1713; C1769; G0390; G8978-GP-CK; G8979-GP-CL; G8987-GO-CL; G8988-GO-CJ; J0131; J0696; J0744; J1720; J1940; J2001; J2270; J2310; J2405; J2704; J3010; J7620; P9016; P9045; S0028

== ENCOUNTER 2017-05-26 18:28 | Inpatient (IN) | payer MEDICARE, MEDICAID ==
[2017-05-26 19:21] LABS: Bilirubin Negative (Negative); Blood, Urine Large (Negative); Clarity TURBID (Clear); Glucose, Urine (Dipstick) Negative (Negative); Leukocyte Large (Negative); Nitrite Positive (Negative); Protein, Urine (Dipstick) 30 mg/dL (Neg-Trace); Specific Gravity, Urine 1.018 (1.002-1.036)
[2017-05-26 19:23] LABS: Bacteria/HPF 4+ HPF (None Seen); Hyaline Casts/LPF 7-10 HYALINE CAST LPF (0-3 Hyaline); Pathc Cast-AUWi Flag 2.03 (0-2.49); RBC/HPF GREATER THAN 50-TNTC HPF (0-3); Squamous Epithelial 0-3 HPF (0-3)
[2017-05-26 19:40] LABS: Hemoglobin 6.6 g/dL (14.0-18.0); Mean Corpuscular HGB CONC 30.5 g/dL (32.0-36.0); Mean Corpuscular Hemoglobin 26.9 pg (27.0-31.0); Mean Corpuscular Volume 88.1 fl (80.0-94.0); RBC Distribution Width 16.6 % (11.5-14.5); Red Blood Cell (RBC) Count 2.46 mill/uL (4.70-6.10); White Blood Cell (WBC) Count 8.7 thou/uL (4.8-10.8)
[2017-05-26] MEDS ORDERED: Piperacillin/Tazobactam 4.5 GM in Sodium Chloride 0.9% 100 ML IVPB SCH (19:45)
[2017-05-26 19:52] LABS: Anisocytosis SLIGHT = 6-15 cells (100X) (0-5/hpf); Band 11 % (5-11); Large Platelets SLIGHT; Lymphocytes 10 % (21-51); MDiff Complete? YES; Mean Platelet Volume 11.5 fL (7.4-10.4); Metamyelocyte 1 % (0-0); Monocytes 7 % (0-10); Neutrophil 71 % (42-75); Ovalocytes SLIGHT = 2-5 cells (100X) (0-1/hpf); PLT Morphology Comment Appears Decreased; Platelet Count 95 thou/uL (130-400); Polychromasia SLIGHT = 2-3 cells (100X) (0-2/hpf); Schistocytes SLIGHT = 2-5 cells (100X) (0-1/hpf); Target Cells SLIGHT = 2-5 cells (100X) (0-1/hpf)
[2017-05-26 19:56] LABS: ALT (SGPT) 8 U/L (8-55); AST (SGOT) 12 U/L (5-34); Alkaline Phosphatase 70 U/L (40-150); BUN (Urea Nitrogen) 26 mg/dL (8.4-25.7); Bilirubin, Total 0.3 mg/dL (0.2-1.2); Calc. Creatinine Clearance 0 mL/min (70-130); Calcium 8.9 mg/dL (7.8-10.44); Estimated GFR-MDRD 70; Globulin 3.3 g/dL (2.4-3.5); Glucose 108 mg/dL (83-110); Protein, Total 6.3 g/dL (5.8-8.1)
[2017-05-26 20:05] LABS: Anion Gap 15 mmol/L (10-20); Carbon Dioxide 35 mmol/L (23-31); Chloride 98 mmol/L (98-107); Potassium 4.4 mmol/L (3.5-5.1); Sodium 144 mmol/L (136-145)
[2017-05-26] MEDS ORDERED: Ondansetron HCl/PF 4 MG/2 ML Vial IVP PRN (21:52)
[2017-05-26] MEDS ORDERED: Acetaminophen 325 MG TAB PO PRN (21:52)
[2017-05-26] MEDS ORDERED: Sodium Chloride 0.9% 1,000 ML IV SCH (21:52)
[2017-05-26] MEDS ORDERED: Ondansetron ODT 4 MG TAB SL PRN (21:52)
[2017-05-27] MEDS ORDERED: Piperacillin/Tazobactam 3.375 GM in Sodium Chloride 0.9% 100 ML IVPB SCH ×2 (06:00→09:00)
[2017-05-27] MEDS ORDERED: PROVENTIL INHALER 6.7 G (200 INHALATIONS) INH PRN (08:12)
[2017-05-27] MEDS: predniSONE 5 MG TAB PO SCH (09:05)
[2017-05-27] MEDS: Tamsulosin HCl 0.4 MG CAP PO SCH (09:05)
[2017-05-27] MEDS: DULoxetine 60 MG CAP PO SCH (09:05)
--- NOTE | 2017-05-27 10:32 | HP ---
DATE OF ADMISSION: 05/26/2017 CHIEF COMPLAINT: Outpatient treatment failure of UTI. HISTORY OF PRESENT ILLNESS: The patient is an 86-year-old [facility] patient who was o n hospice with [facility] who had just finished 10 days treatment of UTI infection with Macrobid b.i.d. Apparently, the patient continued to have incontinence of urination and so at the urge of the [facility] staff at [facility], he was sent to the ER for further evaluation. There, he was noted to h ave WBCs too numerous to count. Denies fever, nausea, vomiting or chills. He does have general weak ness and unsteady gait and some confusion. These are baseline; however, with him and due to failure for of the Macrobid to clear his urine, he is being admitted under observation for further care. PAST MEDICAL HISTORY: Significant for metastatic prostate cancer, anxiety, depression, hypertension, hypothyroidism, dementia, COPD, atrial fibrillation and anemia. He also has outlet obstruction from the prostate but does not currently have to use a catheter. ALLERGIES: No known drug allergies. MEDICATIONS: On admission include Brandy 180 mg once a day, Aricept 5 mg at bedtime, aspirin 81 mg a day, B12 shots every other week, Cymbalta 60 mg daily, Pepcid at bedtime, Flomax 0.4 mg daily, ibup rofen 300 mg b.i.d., DuoNebs p.r.n. dyspnea, levothyroxine 100 mcg p.o. daily, lorazepam 0.5 mg at be dtime, meclizine 25 mg p.r.n. dizziness, prednisone 10 mg once a day, mirtazapine 15 mg at bedtime, a nd Ventolin HFA inhaler 2 puffs q.4 hours p.r.n. REVIEW OF SYSTEMS: At the time of admission: Constitutional: He does confess to chills, but denies fever or malaise. He does have general weakness. HEENT: Denies drainage from his eyes, eye pain, blurred vision. ENT: Denies pain. He does have clear drainage from his nose as a driving issue for the Brandy. Neck: Denies painful range of motion or trouble swallowing. Chest: Currently, has n o cough, wheezing or shortness of breath. Cardiovascular: Denies palpitations or chest pain. GI: Denies nausea, vomiting, diarrhea or discomfort. : Has urinary frequency, incontinence and painfu l urination. Actually the historian reports painful urination and the patient denies painful urinati on. Musculoskeletal: There is no pain in the joint swelling, erythema. Skin: No rashes or lesions . Neurologic: There is baseline confusion, but denies headaches or blurred vision. Hemolytic: No swelling or trouble with blood clots. PHYSICAL EXAMINATION: VITAL SIGNS: On admission, blood pressure 146/59, pulse 64, respirations 18, temperature 98.8. Pain scale 0, O2 sat 100% on 3 liters. GENERAL: This is an elderly male, alert, cooperative without any complaints easily arousable. HEENT: Normocephalic and atraumatic. Pupils are equal, round, and reactive to light with arcus brenda lis bilaterally. TMs, nares, pharynx are clear. NECK: Supple, trachea midline, no mass. CHEST: Good breath sounds bilaterally, no wheezing or rhonchi. HEART: Regular rate and rhythm, no murmur. ABDOMEN: Soft, nontender, without hepatomegaly. : Deferred. EXTREMITIES: Without clubbing, cyanosis, or edema. Normal pedal pulses and radial pulses. NEUROLOGIC: Cranial nerves are intact. Unable to test gait and cerebellar function at this time. S ensory exam is generally is intact. Speech is clear. Mental status is alert with deficits in memory . SKIN: No acute rashes or lesions. Good turgor. PSYCHIATRIC: No evidence of anxiety or depression at this time. LABORATORY AND X-RAY FINDINGS: The lab on admission showed WBCs 8.7, hemoglobin 6.6 with hematocrit 21.7 after 1 unit of blood. The hemoglobin went to 7, hematocrit went to 23, platelets are at 95,000 . Sodium 144, potassium 4.4, chloride 98, CO2 of 35, BUN 26, creatinine 1.01 with glucose of 108. L iver functions unremarkable. Albumin is low. Urinalysis shows too numerous to count wbc's, large bl ood with positive nitrites. ASSESSMENT: 1. Urinary tract infection -- resistant to outpatient treatment with culture driven Macrobid. 2. Anemia. 3. Dementia. 4. History of metastatic prostate cancer, on hospice. PLAN: To continue IV Zosyn until culture returns allowing more specific therapy. Symptomatic treatm ent, out of bed. Regular diet and serial reevaluation. We will also continue his routine medication s.
[2017-05-27] MEDS ORDERED: cloNIDine 0.1 MG TAB PO SCH (15:15)
[2017-05-27] MEDS: Piperacillin/Tazobactam 3.375 GM in Sodium Chloride 0.9% 100 ML IVPB SCH ×2 (16:02→23:45)
[2017-05-27] MEDS: cloNIDine 0.1 MG TAB PO SCH (21:01)
[2017-05-27] MEDS: Donepezil HCl 5 MG TAB PO SCH (21:02)
[2017-05-28] MEDS: Levothyroxine Sodium 100 MCG TAB PO SCH (05:16)
[2017-05-28 06:05] LABS: BUN (Urea Nitrogen) 14 mg/dL (8.4-25.7); Calc. Creatinine Clearance 55 mL/min (70-130); Calcium 8.7 mg/dL (7.8-10.44); Estimated GFR-MDRD Greater than 90; Glucose 80 mg/dL (83-110)
[2017-05-28 06:14] LABS: Anion Gap 10 mmol/L (10-20); Carbon Dioxide 35 mmol/L (23-31); Chloride 102 mmol/L (98-107); Potassium 4.1 mmol/L (3.5-5.1); Sodium 143 mmol/L (136-145)
[2017-05-28 06:51] LABS: Acanthocytes SLIGHT = 1-5 cells (100X) (None Seen); Anisocytosis SLIGHT = 6-15 cells (100X) (0-5/hpf); Band 5 % (5-11); Hemoglobin 7.5 g/dL (14.0-18.0); Lymphocytes 11 % (21-51); MDiff Complete? YES; Mean Corpuscular HGB CONC 30.2 g/dL (32.0-36.0); Mean Corpuscular Volume 92.7 fl (80.0-94.0); Mean Platelet Volume 11.6 fL (7.4-10.4); Monocytes 26 % (0-10); Neutrophil 56 % (42-75); PLT Morphology Comment Appears Decreased; Platelet Count 90 thou/uL (130-400); Reactive Lymphocytes 2 % (0-10); Red Blood Cell (RBC) Count 2.69 mill/uL (4.70-6.10); White Blood Cell (WBC) Count 10.6 thou/uL (4.8-10.8)
[2017-05-28] MEDS: Tamsulosin HCl 0.4 MG CAP PO SCH (08:56)
[2017-05-28] MEDS: DULoxetine 60 MG CAP PO SCH (08:56)
[2017-05-28] MEDS: Piperacillin/Tazobactam 3.375 GM in Sodium Chloride 0.9% 100 ML IVPB SCH ×2 (08:56→16:01)
[2017-05-28] MEDS: predniSONE 5 MG TAB PO SCH (08:56)
[2017-05-28] MEDS: cloNIDine 0.1 MG TAB PO SCH ×2 (08:57→21:02)
[2017-05-28] MEDS ORDERED: Ibuprofen 600 MG TAB PO PRN (12:05)
[2017-05-28] MEDS: Donepezil HCl 5 MG TAB PO SCH (21:11)
[2017-05-28] MEDS: Lorazepam 0.5 MG TAB PO PRN (21:13)
[2017-05-29] MEDS: Piperacillin/Tazobactam 3.375 GM in Sodium Chloride 0.9% 100 ML IVPB SCH ×3 (00:24→15:18)
[2017-05-29] MEDS: Levothyroxine Sodium 100 MCG TAB PO SCH (06:15)
[2017-05-29] MEDS: predniSONE 5 MG TAB PO SCH (09:22)
[2017-05-29] MEDS: Tamsulosin HCl 0.4 MG CAP PO SCH (09:22)
[2017-05-29] MEDS: DULoxetine 60 MG CAP PO SCH (09:22)
[2017-05-29] MEDS: cloNIDine 0.1 MG TAB PO SCH ×2 (09:23→19:35)
--- NOTE | 2017-05-29 13:25 | SPC ---
LEFT UPPER EXTREMITY PICC LINE PLACEMENT: Date: 05/29/17 HISTORY: IV antibiotics. Patient is to be discharged. Urinary tract infection. COMPARISON: None. EXPOSURE: 0.4 minutes. 2864 mGy*cm^2. FINDINGS: Technically successful left upper extremity PICC line placement with ultrasound guidance. Trim length is 47 cm. Distal tip is in the SVC/right atrial junction. Single lumen catheter does flush and aspir ate without difficulty. TECHNIQUE: Consent obtained to perform a left upper extremity PICC line placement with ultrasound guidance. Left arm was prepped and draped in the sterile fashion. 1% lidocaine, buffered with sodium bicarbonate, w as used for local anesthesia. Under [id number] guidance, micropuncture needle was used to cannulate the basilic vein. A 0.018 guidewire was advanced through the needle to the level of the superior vena cava. Wire was subsequently advanced under fluoroscopic guidance to document venous access by placin g the wire in the inferior vena cava. Wire was subsequently pulled back into the SVC/right atrial paula ction. Tract was dilated. A single lumen 5 Azeri catheter was advanced over the wire. Wire was remov ed. Catheter does flush and aspirate without difficulty. Trim length is 47 cm. IMPRESSION: Successful left upper extremity PICC line placement with ultrasound guidance. POS: AMBER
[2017-05-29] MEDS: Donepezil HCl 5 MG TAB PO SCH (19:35)
[2017-05-29] MEDS: Lorazepam 0.5 MG TAB PO PRN (19:37)
[2017-05-30] MEDS: Piperacillin/Tazobactam 3.375 GM in Sodium Chloride 0.9% 100 ML IVPB SCH ×2 (00:26→08:44)
[2017-05-30] MEDS: Levothyroxine Sodium 100 MCG TAB PO SCH (05:37)
[2017-05-30 05:53] LABS: BUN (Urea Nitrogen) 12 mg/dL (8.4-25.7); Calc. Creatinine Clearance 54 mL/min (70-130); Calcium 8.8 mg/dL (7.8-10.44); Estimated GFR-MDRD 90; Glucose 86 mg/dL (83-110)
[2017-05-30 06:02] LABS: Anion Gap 11 mmol/L (10-20); Carbon Dioxide 34 mmol/L (23-31); Chloride 100 mmol/L (98-107); Potassium 4.2 mmol/L (3.5-5.1); Sodium 141 mmol/L (136-145)
[2017-05-30 06:08] LABS: Anisocytosis SLIGHT = 6-15 cells (100X) (0-5/hpf); Band 4 % (5-11); Eosinophils 1 % (0-10); Hemoglobin 7.5 g/dL (14.0-18.0); Hypochromia SLIGHT = 6-15 cells (100X) (0-5/hpf); Lymphocytes 16 % (21-51); MDiff Complete? YES; Mean Corpuscular HGB CONC 29.7 g/dL (32.0-36.0); Mean Corpuscular Hemoglobin 26.9 pg (27.0-31.0); Mean Corpuscular Volume 90.6 fl (80.0-94.0); Mean Platelet Volume 11.4 fL (7.4-10.4); Metamyelocyte 2 % (0-0); Monocytes 14 % (0-10); Myelocyte 1 % (0-0); Neutrophil 60 % (42-75); PLT Morphology Comment Appears Decreased; Platelet Count 103 thou/uL (130-400); RBC Distribution Width 16.3 % (11.5-14.5); Reactive Lymphocytes 2 % (0-10); Red Blood Cell (RBC) Count 2.78 mill/uL (4.70-6.10); White Blood Cell (WBC) Count 10.7 thou/uL (4.8-10.8)
[2017-05-30] MEDS: DULoxetine 60 MG CAP PO SCH (08:44)
[2017-05-30] MEDS: predniSONE 5 MG TAB PO SCH (08:44)
[2017-05-30] MEDS: Tamsulosin HCl 0.4 MG CAP PO SCH (08:44)
[2017-05-30] MEDS: cloNIDine 0.1 MG TAB PO SCH (08:45)
[2017-05-30 12:36] VITALS: BP 133/61; TEMP 97.7
[2017-05-31] MEDS ORDERED: Heparin 1,000 UNITS/ML VIAL ONE (18:05)
== END 2017-05-30 13:37 | disposition hospice, inpatient (51) | DRG 690 ==
LOC: ERS 18:28 → OBSVTOIN 21:15 → T4-B 21:15
PROVIDERS: ADMIT Specialist; ATTEND Specialist
PROC: 02HV33Z Insertion of Infusion Device into Superior Vena Cava, Percutaneous Approach (ICD-10-PCS; principal; 2017-05-26)
PROC: B548ZZA Ultrasonography of Superior Vena Cava, Guidance (ICD-10-PCS; 2017-05-26)
DX: N39.0 Urinary tract infection, site not specified (principal); C79.9 Secondary malignant neoplasm of unspecified site; I48.91 Unspecified atrial fibrillation; C61 Malignant neoplasm of prostate; D63.8 Anemia in other chronic diseases classified elsewhere; F03.90 Unspecified dementia, unspecified severity, without behavioral disturbance, psychotic disturbance, mood disturbance, and anxiety; E03.9 Hypothyroidism, unspecified; J44.9 Chronic obstructive pulmonary disease, unspecified; F32.9 Major depressive disorder, single episode, unspecified; F41.9 Anxiety disorder, unspecified; I10 Essential (primary) hypertension
CPT/HCPCS: 36415; 36430; 36569; 51701; 80048; 80053; 81003; 81015; 82274; 84443; 85014; 85018; 85025; 86850; 86900; 86901; 87077; 87086; 87186; 94640; 96365; A4216; C1751; G8978-GP-CM; G8979-GP-CL; J2543; J7050; J7620; P9016